=== PATIENT | female | born 1950 | race Hispanic/Latino ===

== ENCOUNTER 2022-11-26 12:17 | Emergency (ER) | payer MEDICARE ==
[~2022-11-26] VITALS: Ht 152.4 cm; Wt 70.3 kg
[2022-11-26 12:48] VITALS: BP 141/61
[2022-11-26] MEDS ORDERED: ACET-2521 PO (14:19)
== END 2022-11-26 15:46 | disposition home or self-care (01) ==
LOC: EDH 12:17
DX: M25.562 Pain in left knee (principal); M19.90 Unspecified osteoarthritis, unspecified site; F32.A Depression, unspecified; E11.9 Type 2 diabetes mellitus without complications; E78.00 Pure hypercholesterolemia, unspecified; I10 Essential (primary) hypertension; Z90.49 Acquired absence of other specified parts of digestive tract
CPT/HCPCS: 29505; 73562